=== PATIENT | female | born 1980 | race American Indian/Alaskan Native ===

== ENCOUNTER 2019-01-14 11:37 | Inpatient (IN) | payer SELFPAY ==
--- NOTE | 2019-01-14 11:47 | Emergency Department Report ---
Blank Doc - Documentation Documentation: This is a 38-year-old female that presents SOB and bilateral lower ext swelling. Denies history of cardiac. This initial assessment/diagnostic orders/clinical plan/treatment(s) is/are subject to change based on patient's health status, clinical progression and re- assessment by fellow clinical providers in the ED. Further treatment and workup at subsequent clinical providers discretion. Patient/guardians urged not to elope from the ED as their condition may be serious if not clinically assessed and managed. Initial orders include: 1- Patient sent to MAIN ED for further evaluation and treatment 2- EKG 3- labs 4- CXR
--- NOTE | 2019-01-14 14:43 | Emergency Department Report ---
ED Shortness of Breath HPI - General Chief Complaint: Dyspnea/Respdistress Stated Complaint: SOB/SWOLLEN FEET/ANKLES/CHEST PAIN Time Seen by Provider: 01/14/19 11:45 Source: patient Mode of arrival: Ambulatory Limitations: No Limitations - History of Present Illness Initial Comments: Patient is a 38-year-old female with no significant past medical history. Patient presented to the ER complaining of shortness of breath and generalized weakness and bilateral lower extremity swelling for the last 2 weeks. Patient denied any chest pain, fever or cough. Patient denied hematemesis, hemoptysis, melena and hematochezia or hematuria. However patient stated that she is been having trouble with her cycle. Continue usually for 10 days and is heavy and sometimes she has to change her pads every 2 hours. MD Complaint: shortness of breath -: week(s) - Related Data Allergies Allergy/AdvReac Type Severity Reaction Status Date / Time No Known Allergies Allergy Unverified 01/14/19 11:40 ED Review of Systems ROS: Stated complaint: SOB/SWOLLEN FEET/ANKLES/CHEST PAIN Other details as noted in HPI Comment: All other systems reviewed and negative Constitutional: denies: chills, fever Respiratory: orthopnea, shortness of breath, SOB with exertion, SOB at rest. denies: cough, wheezing Cardiovascular: denies: chest pain, palpitations Musculoskeletal: denies: back pain Neurological: weakness (generalized). denies: headache ED Past Medical Hx - Past Medical History Previous Medical History?: No - Surgical History Past Surgical History?: No - Social History Smoking Status: Current Every Day Smoker Substance Use Type: Alcohol ED Physical Exam - General Limitations: No Limitations General appearance: alert, in no apparent distress - Head Head exam: Present: atraumatic, normocephalic, normal inspection - Eye Eye exam: Present: other (pale sclera) - ENT ENT exam: Present: normal exam, normal orophraynx, mucous membranes moist - Neck Neck exam: Present: normal inspection, full ROM. Absent: tenderness, meningismus, lymphadenopathy, thyromegaly - Respiratory Respiratory exam: Present: normal lung sounds bilaterally - Cardiovascular Cardiovascular Exam: Present: tachycardia - GI/Abdominal GI/Abdominal exam: Present: soft, normal bowel sounds. Absent: distended, tenderness, guarding, rebound, rigid, organomegaly, mass, bruit, pulsatile mass, hernia - Extremities Exam Extremities exam: Present: normal inspection, full ROM, normal capillary refill - Back Exam Back exam: Present: normal inspection, full ROM. Absent: CVA tenderness (R), CVA tenderness (L), muscle spasm, paraspinal tenderness, vertebral tenderness, rash noted - Neurological Exam Neurological exam: Present: alert, oriented X3, CN II-XII intact, normal gait - Skin Skin exam: Present: warm, intact, normal color ED Course Vital Signs 01/14/19 01/14/19 01/14/19 11:47 15:17 16:06 Temperature 98.3 F Pulse Rate 103 H 82 87 Respiratory 18 18 18 Rate Blood Pressure 120/51 Blood Pressure 104/62 110/63 [Right] O2 Sat by Pulse 100 100 99 Oximetry ED Medical Decision Making - Lab Data Result diagrams: 01/14/19 13:45 01/14/19 13:45 - EKG Data -: EKG Interpreted by Id EKG shows normal: sinus rhythm Rate: tachycardia - EKG Data Interpretation: no acute changes - Radiology Data Radiology results: report reviewed - Medical Decision Making Patient is a 38-year-old female with no significant past medical history. Patient presented to the ER complaining of shortness of breath and generalized weakness and bilateral lower extremity swelling for the last 2 weeks. Patient denied any chest pain, fever or cough. Patient denied hematemesis, hemoptysis, melena and hematochezia or hematuria. However patient stated that she is been having trouble with her cycle. Continue usually for 10 days and is heavy and sometimes she has to change her pads every 2 hours. Patient found to have a hemoglobin of 2.6 most likely secondary to excessive bleeding from her menstrual cycle. 2 units of PRBC ordered. I discussed the patient is Dr. Vazquez, he agreed to admit the patient to medical service. I discussed the patient was Dr. Bansal from gynecology, she advised she will follow-up with the patient in the hospital. Critical Care Time: Yes Critical care time in (mins) excluding proc time.: 30 Critical care attestation.: If time is entered above; I have spent that time in minutes in the direct care of this critically ill patient, excluding procedure time. ED Disposition Clinical Impression: Acute anemia, Acute congestive heart failure Disposition: OP ADMIT IP TO THIS HOSP Is pt being admited?: Yes Condition: Stable Referrals: [facility], MD [Primary Care Provider] - 3-5 Days
[2019-01-14 14:51] LABS: INR 1.05 (0.87-1.13)
[2019-01-14 14:52] LABS: Partial Thromboplastin Time 29.7 Sec. (24.2-36.6)
[2019-01-14 14:55] LABS: Mean Corpuscular HGB Conc 25 % (30-34); Platelet Count 390 K/mm3 (140-440); Red Blood Count 2.04 M/mm3 (3.65-5.03)
[2019-01-14 14:59] LABS: Alanine Aminotransferase 30 units/L (7-56); Albumin 3.8 g/dL (3.9-5); BUN/Creatinine Ratio 10; Blood Urea Nitrogen 6 mg/dL (7-17); Calcium 8.5 mg/dL (8.4-10.2); Hemolysis Index 0
[2019-01-14 15:15] LABS: Hemoglobin 2.6 gm/dl (10.1-14.3)
[2019-01-14 15:16] LABS: Hematocrit 10.4 % (30.3-42.9); Mean Corpuscular Volume 51 fl (79-97); Red Cell Distribution Width 24.2 % (13.2-15.2)
[2019-01-14] MEDS ORDERED: NACL 0.9% 500 ML 500 ML IV ONE (15:45)
[2019-01-14 15:58] LABS: Eosinophils % (Manual) 0 % (0.0-4.3); Total Cells Counted 100
[2019-01-14 16:00] LABS: Anisocytosis 2+; Hypochromasia 3+
[2019-01-14 16:01] LABS: Tear Drop Cells Few
--- NOTE | 2019-01-14 16:21 | XRay Report ---
PROCEDURE: XR CHEST ROUTINE 2V HISTORY: Chest Pain upt FINDINGS: Frontal and lateral views the chest were acquired. There is cardiomegaly. There is no evide nce of congestive heart failure. There is no consolidative pulmonary infiltrate. IMPRESSION: Cardiomegaly This document is electronically signed by Kuldip Christine MD., Jan 14 2019 04:19:38 PM ET
[2019-01-14] MEDS ORDERED: NACL 0.9% 500 ML 500 ML ONE (17:14)
[2019-01-14] MEDS ORDERED: PERCOCET 5/325 PO PRN (21:22)
[2019-01-14] MEDS ORDERED: SODIUM CHLORIDE FLUSH SYRINGE 10 ML IV PRN ×2 (21:22→21:34)
[2019-01-14] MEDS ORDERED: ZOFRAN IV PRN ×2 (21:22→21:34)
[2019-01-14] MEDS ORDERED: TYLENOL PO PRN ×2 (21:22→21:34)
[2019-01-14] MEDS ORDERED: MORPHINE IV PRN (21:22)
--- NOTE | 2019-01-14 21:22 | History and Physical Report ---
History of Present Illness Date of examination: 01/14/19 Date of admission: 01/14/19 15:55 Chief complaint: Severe weakness and shortness of breath on exertion for 2 weeks History of present illness: 38-year-old female with no significant past medical history comes in for his severe weakness and bilateral lower extremity swelling for 2 weeks. In the emergency room patient was found to have a hemoglobin of 2.6. Patient has been having severe menstrual periods== heavy in nature. 10 days of menstrual periods and has to change up to 10 pads every day. Patient did not have any workup and does not know whether she has fibroids. No lower GI bleed or vomiting blood. No past medical history of any thalassemia or sickle cell anemias or hemolytic anemias. Past Medical History Previous Medical History?: No Surgical History Past Surgical History?: No Social History Smoking Status: Current Every Day Smoker Substance Use Type: Alcohol Family history hypertension Review of Systems ROS: Stated complaint: SOB/SWOLLEN FEET/ANKLES/CHEST PAIN Other details as noted in HPI Comment: All other systems reviewed and negative Constitutional: denies: chills, fever Respiratory: orthopnea, shortness of breath, SOB with exertion, SOB at rest. denies: cough, wheezing Cardiovascular: denies: chest pain, palpitations Musculoskeletal: denies: back pain Neurological: weakness (generalized). denies: headache Medications and Allergies Allergies Allergy/AdvReac Type Severity Reaction Status Date / Time No Known Allergies Allergy Unverified 01/14/19 11:40 Home Medications Medication Instructions Recorded Confirmed Last Taken Type No Known Home Medications [No 01/14/19 01/14/19 Unknown History Reported Home Medications] Exam - Physical Exam Narrative exam: Lying in bed comfortably - Constitutional Vitals: Temp Pulse Resp BP Pulse Ox 98.8 F 91 H 16 121/61 97 01/14/19 20:29 01/14/19 20:29 01/14/19 20:29 01/14/19 20:29 01/14/19 20:29 General appearance: Present: no acute distress, well-nourished - EENT Eyes: Present: PERRL ENT: hearing intact, clear oral mucosa, other (pale mucous membranes) - Neck Neck: Present: supple, normal ROM - Respiratory Respiratory effort: normal Respiratory: bilateral: CTA - Cardiovascular Heart rate: 96 Rhythm: regular Heart Sounds: Present: S1 & S2. Absent: rub, click - Extremities Extremities: no ischemia, pulses intact, pulses symmetrical, No edema Peripheral Pulses: within normal limits - Abdominal General gastrointestinal: Present: soft, non-tender, non-distended, normal bowel sounds Female genitourinary: Present: normal - Rectal Rectal Exam: deferred - Integumentary Integumentary: Present: clear, warm, dry - Musculoskeletal Musculoskeletal: gait normal, strength equal bilaterally - Psychiatric Psychiatric: appropriate mood/affect, intact judgment & insight - Neurologic Neurologic: CNII-XII intact, moves all extremities Results - Labs CBC & Chem 7: 01/14/19 13:45 01/14/19 13:45 Labs: Laboratory Last Values WBC 6.3 K/mm3 (4.5-11.0) 01/14/19 13:45 RBC 2.04 M/mm3 (3.65-5.03) L 01/14/19 13:45 Hgb 2.6 gm/dl (10.1-14.3) L* 01/14/19 13:45 Hct 10.4 % (30.3-42.9) L* 01/14/19 13:45 MCV 51 fl (79-97) L 01/14/19 13:45 MCH 13 pg (28-32) L 01/14/19 13:45 MCHC 25 % (30-34) L 01/14/19 13:45 RDW 24.2 % (13.2-15.2) H 01/14/19 13:45 Plt Count 390 K/mm3 (140-440) 01/14/19 13:45 Add Manual Diff Complete 01/14/19 13:45 Total Counted 100 01/14/19 13:45 Seg Neuts % (Manual) 85.0 % (40.0-70.0) H 01/14/19 13:45 0 % 01/14/19 13:45 10.0 % (13.4-35.0) L 01/14/19 13:45 Reactive Lymphs % (Man) 0 % 01/14/19 13:45 2.0 % (0.0-7.3) 01/14/19 13:45 0 % (0.0-4.3) 01/14/19 13:45 3.0 % (0.0-1.8) H 01/14/19 13:45 0 % 01/14/19 13:45 0 % 01/14/19 13:45 0 % 01/14/19 13:45 0 % 01/14/19 13:45 Nucleated RBC % Not Reportable 01/14/19 13:45 Seg Neutrophils # Man 5.4 K/mm3 (1.8-7.7) 01/14/19 13:45 Band Neutrophils # 0.0 K/mm3 01/14/19 13:45 0.6 K/mm3 (1.2-5.4) L 01/14/19 13:45 Abs React Lymphs (Man) 0.0 K/mm3 01/14/19 13:45 0.1 K/mm3 (0.0-0.8) 01/14/19 13:45 0.0 K/mm3 (0.0-0.4) 01/14/19 13:45 0.2 K/mm3 (0.0-0.1) H 01/14/19 13:45 0.0 K/mm3 01/14/19 13:45 0.0 K/mm3 01/14/19 13:45 0.0 K/mm3 01/14/19 13:45 Blast Cells # 0.0 K/mm3 01/14/19 13:45 WBC Morphology Not Reportable 01/14/19 13:45 Hypersegmented Neuts Not Reportable 01/14/19 13:45 Hyposegmented Neuts Not Reportable 01/14/19 13:45 Hypogranular Neuts Not Reportable 01/14/19 13:45 Not Reportable 01/14/19 13:45 Not Reportable 01/14/19 13:45 Not Reportable 01/14/19 13:45 Not Reportable 01/14/19 13:45 Not Reportable 01/14/19 13:45 Not Reportable 01/14/19 13:45 Appears normal 01/14/19 13:45 Not Reportable 01/14/19 13:45 Plt Clumps, EDTA Not Reportable 01/14/19 13:45 Not Reportable 01/14/19 13:45 Not Reportable 01/14/19 13:45 Not Reportable 01/14/19 13:45 Plt Morphology Comment Not Reportable 01/14/19 13:45 RBC Morphology Not Reportable 01/14/19 13:45 Dimorphic RBCs Not Reportable 01/14/19 13:45 Not Reportable 01/14/19 13:45 3+ 01/14/19 13:45 Not Reportable 01/14/19 13:45 2+ 01/14/19 13:45 3+ 01/14/19 13:45 Not Reportable 01/14/19 13:45 Not Reportable 01/14/19 13:45 Not Reportable 01/14/19 13:45 Not Reportable 01/14/19 13:45 Not Reportable 01/14/19 13:45 Few 01/14/19 13:45 Not Reportable 01/14/19 13:45 Not Reportable 01/14/19 13:45 Not Reportable 01/14/19 13:45 Not Reportable 01/14/19 13:45 Not Reportable 01/14/19 13:45 Not Reportable 01/14/19 13:45 Not Reportable 01/14/19 13:45 Not Reportable 01/14/19 13:45 Acanthocytes (Spur) Not Reportable 01/14/19 13:45 Rouleaux Not Reportable 01/14/19 13:45 Not Reportable 01/14/19 13:45 Not Reportable 01/14/19 13:45 Not Reportable 01/14/19 13:45 Not Reportable 01/14/19 13:45 Hem Pathologist Commnt No 01/14/19 13:45 PT 14.4 Sec. (12.2-14.9) 01/14/19 13:45 INR 1.05 (0.87-1.13) 01/14/19 13:45 APTT 29.7 Sec. (24.2-36.6) 01/14/19 13:45 Sodium 137 mmol/L (137-145) 01/14/19 13:45 Potassium 3.9 mmol/L (3.6-5.0) 01/14/19 13:45 Chloride 103.7 mmol/L (98-107) 01/14/19 13:45 Carbon Dioxide 22 mmol/L (22-30) 01/14/19 13:45 15 mmol/L 01/14/19 13:45 BUN 6 mg/dL (7-17) L 01/14/19 13:45 0.6 mg/dL (0.7-1.2) L 01/14/19 13:45 Estimated GFR > 60 ml/min 01/14/19 13:45 10 % 01/14/19 13:45 Glucose 96 mg/dL (65-100) 01/14/19 13:45 Calcium 8.5 mg/dL (8.4-10.2) 01/14/19 13:45 0.30 mg/dL (0.1-1.2) 01/14/19 13:45 AST 28 units/L (5-40) 01/14/19 13:45 ALT 30 units/L (7-56) 01/14/19 13:45 160 units/L (35-129) H 01/14/19 13:45 < 0.010 ng/mL (0.00-0.029) 01/14/19 13:45 NT-Pro-B Natriuret Pep 1165 pg/mL (0-450) H 01/14/19 13:45 6.7 g/dL (6.3-8.2) 01/14/19 13:45 3.8 g/dL (3.9-5) L 01/14/19 13:45 1.3 % 01/14/19 13:45 HCG, Qual Negative (Negative) 01/14/19 13:45 Blood Type O POSITIVE 01/14/19 15:45 Antibody Screen Negative 01/14/19 15:45 Crossmatch See Detail 01/14/19 15:45 Short CBC 01/14/19 Range/Units 13:45 WBC 6.3 (4.5-11.0) K/mm3 Hgb 2.6 L* (10.1-14.3) gm/dl Hct 10.4 L* (30.3-42.9) % Plt Count 390 (140-440) K/mm3 BMP 01/14/19 13:45 Sodium 137 Potassium 3.9 Chloride 103.7 Carbon Dioxide 22 BUN 6 L Creatinine 0.6 L Glucose 96 Calcium 8.5 Cardiac Enzymes 01/14/19 Range/Units 13:45 Troponin T < 0.010 (0.00-0.029) ng/mL Liver Function 01/14/19 Range/Units 13:45 Total Bilirubin 0.30 (0.1-1.2) mg/dL AST 28 (5-40) units/L ALT 30 (7-56) units/L Alkaline Phosphatase 160 H (35-129) units/L Albumin 3.8 L (3.9-5) g/dL - Imaging and Cardiology EKG: report reviewed (pending) Imaging and Cardiology: Chest x-ray IMPRESSION: Cardiomegaly Assessment and Plan Advance Directives: Yes (full code) VTE prophylaxis?: Chemical Plan of care discussed with patient/family: Yes - Patient Problems (1) Acute anemia Current Visit: Yes Status: Acute Plan to address problem: Secondary to menorrhagia Transfuse 2-4 units of packed red blood cells Menorrhagia workup to rule out fibroids [employer] consult requested Pelvic ultrasound requested (2) Acute congestive heart failure Current Visit: Yes Status: Acute Qualifiers: Heart failure type: combined systolic and diastolic Qualified Code(s): I50.41 - Acute combined systolic (congestive) and diastolic (congestive) heart failure Plan to address problem: Secondary to severe anemia Will get echocardiogram to assess LV function and ejection fraction No diuretics (3) Menorrhagia Current Visit: Yes Status: Acute Qualifiers: Menorrahagia type: with onset of menstrual periods Qualified Code(s): N92.2 - Excessive menstruation at puberty Plan to address problem: Excessive bleeding per uterus Rule out endometriosis and fibroids Pelvic ultrasound ordered [employer] consult ordered (4) Nicotine dependence Current Visit: Yes Status: Chronic Qualifiers: Nicotine product type: cigarettes Plan to address problem: Consult about cessation of smoking NicoDerm patch ordered (5) DVT prophylaxis Current Visit: Yes Status: Acute Plan to address problem: SCDs and GI prophylaxis
[2019-01-14] MEDS ORDERED: NACL 0.9% 500 ML 500 ML IV SCH (21:35)
[2019-01-14] MEDS ORDERED: NACL 0.9% 250ML 250 ML ONE (21:43)
[2019-01-14] MEDS: PEPCID IV SCH (21:46)
[2019-01-14] MEDS: SODIUM CHLORIDE FLUSH SYRINGE 10 ML IV SCH (21:47)
[2019-01-14] MEDS ORDERED: SODIUM CHLORIDE FLUSH SYRINGE 10 ML IV SCH (22:00)
[2019-01-14] MEDS ORDERED: D5NS 1,000 ML IV SCH (22:00)
[2019-01-15] MEDS ORDERED: LASIX IV ONE (09:00)
--- NOTE | 2019-01-15 09:21 | XRay Report ---
AP CHEST: HISTORY: Shortness of breath 2 view chest performed yesterday was reviewed. Heart size is normal in my opinion. Pulmonary vascularity is at the upper limits of normal. The lungs are clear. No evidence for pneumonia, pleural effusion or pneumothorax. IMPRESSION: Unremarkable AP chest.
[2019-01-15] MEDS ORDERED: PROVENTIL IH PRN (11:07)
--- NOTE | 2019-01-15 13:48 | Consultation ---
History of Present Illness Consult date: 01/15/19 Reason for consult: menorrhagia, other (anemia) History of present illness: 38-year-old who presents to the emergency department with a complaint of shortness of breath and fatigue. The patient reports a history of having significant dysfunctional uterine bleeding with her menses lasting generally 10- 12 days each month with the passage of clots and flooding. The patient states she's had abnormal bleeding for several months without treatment. She has no known history of uterine fibroids in the past. Past History Past Medical History: other (anemia) Past Surgical History: section Social history: single - Obstetrical History : 2 Para: 2 Hx # Term Pregnancies: 0 Number of Pregnancies: 2 ( demise) Spontaneous Abortions: 0 Induced : 0 Number of Living Children: 1 Medications and Allergies Allergies Allergy/AdvReac Type Severity Reaction Status Date / Time No Known Allergies Allergy Unverified 01/14/19 11:40 Home Medications Medication Instructions Recorded Confirmed Last Taken Type No Known Home Medications [No 01/14/19 01/14/19 Unknown History Reported Home Medications] Active Meds: Active Medications Acetaminophen (Tylenol) 650 mg PO Q4H PRN PRN Reason: Pain MILD(1-3)/Fever >100.5/TRAN Last Admin: 01/15/19 08:10 Dose: 650 mg Documented by: Albuterol (Proventil) 2.5 mg IH Q4HRT PRN PRN Reason: Shortness Of Breath Albuterol/Ipratropium (Duoneb *Not For Prn Use*) 1 ampul IH Q8HRT [facility] Famotidine (Pepcid) 20 mg IV BID [facility] Last Admin: 01/14/19 21:46 Dose: 20 mg Documented by: Dextrose/Sodium Chloride (D5ns) 1,000 mls @ 42 mls/hr IV DIRECT [facility] Last Admin: 01/14/19 22:03 Dose: 42 mls/hr Documented by: Sodium Chloride (Nacl 0.9% 500 Ml) 500 mls @ 0 mls/hr IV ONCE KEYLA Stop: 01/15/19 21:34 Last Admin: 01/15/19 02:20 Dose: 50 mls/hr Documented by: Morphine Sulfate (Morphine) 2 mg IV Q4H PRN PRN Reason: Pain, Moderate (4-6) Ondansetron HCl (Zofran) 4 mg IV Q8H PRN PRN Reason: Nausea And Vomiting Oxycodone/Acetaminophen (Percocet 5/325) 1 tab PO Q6H PRN PRN Reason: Pain, Moderate (4-6) Sodium Chloride (Sodium Chloride Flush Syringe 10 Ml) 10 ml IV BID [facility] Last Admin: 01/14/19 21:47 Dose: 10 ml Documented by: Sodium Chloride (Sodium Chloride Flush Syringe 10 Ml) 10 ml IV PRN PRN PRN Reason: LINE FLUSH Review of Systems All systems: negative Constitutional: fatigue, weakness, malaise Genitourinary: vaginal bleeding - Vital Signs Vital signs: Vital Signs Temp Pulse Resp BP Pulse Ox 98.3 F 103 H 18 120/51 100 01/14/19 11:47 01/14/19 11:47 01/14/19 11:47 01/14/19 11:47 01/14/19 11:47 Temp Pulse Resp BP Pulse Ox 98.7 F 74 18 111/69 97 01/15/19 12:54 01/15/19 06:20 01/15/19 12:54 01/15/19 12:54 01/15/19 06:20 - Physical Exam Breasts: Positive: deferred Cardiovascular: Regular rate Lungs: Positive: Clear to auscultation Abdomen: Positive: normal appearance Results Result Diagrams: 01/14/19 13:45 01/14/19 13:45 Abnormal lab results 01/14/19 01/14/19 01/14/19 Range/Units 13:45 13:45 15:45 RBC 2.04 L (3.65-5.03) M/mm3 Hgb 2.6 L* (10.1-14.3) gm/dl Hct 10.4 L* (30.3-42.9) % MCV 51 L (79-97) fl MCH 13 L (28-32) pg MCHC 25 L (30-34) % RDW 24.2 H (13.2-15.2) % Seg Neuts % (Manual) 85.0 H (40.0-70.0) % Lymphocytes % (Manual) 10.0 L (13.4-35.0) % Basophils % (Manual) 3.0 H (0.0-1.8) % Lymphocytes # (Manual) 0.6 L (1.2-5.4) K/mm3 Basophils # (Manual) 0.2 H (0.0-0.1) K/mm3 BUN 6 L (7-17) mg/dL Creatinine 0.6 L (0.7-1.2) mg/dL Alkaline Phosphatase 160 H (35-129) units/L NT-Pro-B Natriuret Pep 1165 H (0-450) pg/mL Albumin 3.8 L (3.9-5) g/dL Crossmatch See Detail All other labs normal. Assessment and Plan - Patient Problems (1) Acute anemia Current Visit: Yes Status: Acute Plan to address problem: Will order a pelvic ultrasound Patient has currently completed her menses for this month Will need to perform an endometrial biopsy as an outpatient will further discuss treatment options after ultrasound is completed (2) Menorrhagia Current Visit: Yes Status: Acute Qualifiers: Menorrahagia type: with onset of menstrual periods Qualified Code(s): N92.2 - Excessive menstruation at puberty
[2019-01-15] MEDS: DUONEB *Not for PRN Use IH SCH (14:07)
--- NOTE | 2019-01-15 14:51 | Progress Note ---
Assessment and Plan Assessment and plan: 38-year-old female with no significant past medical history comes in for his severe weakness and bilateral lower extremity swelling for 2 weeks. In the emergency room patient was found to have a hemoglobin of 2.6. Patient has been having severe menstrual periods== heavy in nature. 10 days of menstrual periods and has to change up to 10 pads every day. Patient did not have any workup and does not know whether she has fibroids. No lower GI bleed or vomiting blood. No past medical history of any thalassemia or sickle cell anemias or hemolytic anemias. 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 (3) Menorrhagia Current Visit: Yes Status: Acute Qualifiers: Menorrahagia type: with onset of menstrual periods Qualified Code(s): N92.2 - Excessive menstruation at puberty Plan to address problem: Excessive bleeding per uterus Rule out endometriosis and fibroids Pelvic ultrasound ordered ACID BLOWER consult ordered and case discussed with them. (4) Nicotine dependence Current Visit: Yes Status: Chronic Qualifiers: Nicotine product type: cigarettes Plan to address problem: Consult about cessation of smoking. 15 minutes of counseling provided to the patient. NicoDerm patch ordered (5) DVT prophylaxis Current Visit: Yes Status: Acute Plan to address problem: SCDs and GI prophylaxis Anticipated discharge in a.m. discussed with ACID BLOWER patient to follow-up in the office. Await pelvic ultrasound was ordered. History Interval history: Admitted with severe anemia. Patient is examined this morning in no acute distress resting comfortably. Although this morning the patient reported shortness of breath improved with introduction of Lasix. Hospitalist Physical - Physical exam Narrative exam: VITAL SIGNS: Reviewed. GENERAL: The patient appeared well nourished and normally developed, Vital signs as documented. HEAD: No signs of head trauma. EYES: Pupils are equal. Extraocular motions intact. EARS: Hearing grossly intact. MOUTH: Oropharynx is normal. NECK: No adenopathy, no JVD. Mildly tender on the right side. CHEST: Chest with clear breath sounds bilaterally. No wheezes, rales, or rhonchi. CARDIAC: Regular rate and rhythm. S1 and S2, without murmurs, gallops, or rubs. VASCULAR: No Edema. Peripheral pulses normal and equal in all extremities. ABDOMEN: Soft, non tender and non distended. No rebound or guarding, and no masses palpated. Bowel Sounds normal. MUSCULOSKELETAL: Good range of motion of all major joints. Extremities without clubbing, cyanosis or edema. NEUROLOGIC EXAM: Alert and oriented x 3 No focal sensory or strength def icits. Speech normal. Follows commands. PSYCHIATRIC: Mood normal. SKIN: No rash or lesions. - Constitutional Vitals: Temp Pulse Resp BP Pulse Ox 98.7 F 69 16 111/69 97 01/15/19 12:54 01/15/19 14:11 01/15/19 14:11 01/15/19 12:54 01/15/19 06:20 General appearance: Present: no acute distress, well-nourished Results - Labs CBC & Chem 7: 01/14/19 13:45 01/14/19 13:45 Labs: Laboratory Last Values WBC 6.3 K/mm3 (4.5-11.0) 01/14/19 13:45 RBC 2.04 M/mm3 (3.65-5.03) L 01/14/19 13:45 Hgb 2.6 gm/dl (10.1-14.3) L* 01/14/19 13:45 Hct 10.4 % (30.3-42.9) L* 01/14/19 13:45 MCV 51 fl (79-97) L 01/14/19 13:45 MCH 13 pg (28-32) L 01/14/19 13:45 MCHC 25 % (30-34) L 01/14/19 13:45 RDW 24.2 % (13.2-15.2) H 01/14/19 13:45 Plt Count 390 K/mm3 (140-440) 01/14/19 13:45 Add Manual Diff Complete 01/14/19 13:45 Total Counted 100 05/13/19 13:45 Seg Neuts % (Manual) 85.0 % (40.0-70.0) H 01/14/19 13:45 0 % 01/14/19 13:45 10.0 % (13.4-35.0) L 01/14/19 13:45 Reactive Lymphs % (Man) 0 % 01/14/19 13:45 2.0 % (0.0-7.3) 01/14/19 13:45 0 % (0.0-4.3) 01/14/19 13:45 3.0 % (0.0-1.8) H 01/14/19 13:45 0 % 01/14/19 13:45 0 % 01/14/19 13:45 0 % 01/14/19 13:45 0 % 01/14/19 13:45 Nucleated RBC % Not Reportable 01/14/19 13:45 Seg Neutrophils # Man 5.4 K/mm3 (1.8-7.7) 01/14/19 13:45 Band Neutrophils # 0.0 K/mm3 01/14/19 13:45 0.6 K/mm3 (1.2-5.4) L 01/14/19 13:45 Abs React Lymphs (Man) 0.0 K/mm3 01/14/19 13:45 0.1 K/mm3 (0.0-0.8) 01/14/19 13:45 0.0 K/mm3 (0.0-0.4) 01/14/19 13:45 0.2 K/mm3 (0.0-0.1) H 01/14/19 13:45 0.0 K/mm3 01/14/19 13:45 0.0 K/mm3 01/14/19 13:45 0.0 K/mm3 01/14/19 13:45 Blast Cells # 0.0 K/mm3 01/14/19 13:45 WBC Morphology Not Reportable 01/14/19 13:45 Hypersegmented Neuts Not Reportable 01/14/19 13:45 Hyposegmented Neuts Not Reportable 01/14/19 13:45 Hypogranular Neuts Not Reportable 01/14/19 13:45 Not Reportable 01/14/19 13:45 Not Reportable 01/14/19 13:45 Not Reportable 01/14/19 13:45 Not Reportable 01/14/19 13:45 Not Reportable 01/14/19 13:45 Not Reportable 01/14/19 13:45 Appears normal 01/14/19 13:45 Not Reportable 01/14/19 13:45 Plt Clumps, EDTA Not Reportable 01/14/19 13:45 Not Reportable 01/14/19 13:45 Not Reportable 01/14/19 13:45 Not Reportable 01/14/19 13:45 Plt Morphology Comment Not Reportable 01/14/19 13:45 RBC Morphology Not Reportable 01/14/19 13:45 Dimorphic RBCs Not Reportable 01/14/19 13:45 Not Reportable 01/14/19 13:45 3+ 01/14/19 13:45 Not Reportable 01/14/19 13:45 2+ 01/14/19 13:45 3+ 01/14/19 13:45 Not Reportable 01/14/19 13:45 Not Reportable 01/14/19 13:45 Not Reportable 01/14/19 13:45 Not Reportable 01/14/19 13:45 Not Reportable 01/14/19 13:45 Few 01/14/19 13:45 Not Reportable 01/14/19 13:45 Not Reportable 01/14/19 13:45 Not Reportable 01/14/19 13:45 Not Reportable 01/14/19 13:45 Not Reportable 01/14/19 13:45 Not Reportable 01/14/19 13:45 Not Reportable 01/14/19 13:45 Not Reportable 01/14/19 13:45 Acanthocytes (Spur) Not Reportable 01/14/19 13:45 Rouleaux Not Reportable 01/14/19 13:45 Not Reportable 01/14/19 13:45 Not Reportable 01/14/19 13:45 Not Reportable 01/14/19 13:45 Not Reportable 01/14/19 13:45 Hem Pathologist Commnt No 01/14/19 13:45 PT 14.4 Sec. (12.2-14.9) 01/14/19 13:45 INR 1.05 (0.87-1.13) 01/14/19 13:45 APTT 29.7 Sec. (24.2-36.6) 01/14/19 13:45 Sodium 137 mmol/L (137-145) 01/14/19 13:45 Potassium 3.9 mmol/L (3.6-5.0) 01/14/19 13:45 Chloride 103.7 mmol/L (98-107) 01/14/19 13:45 Carbon Dioxide 22 mmol/L (22-30) 01/14/19 13:45 15 mmol/L 01/14/19 13:45 BUN 6 mg/dL (7-17) L 01/14/19 13:45 0.6 mg/dL (0.7-1.2) L 01/14/19 13:45 Estimated GFR > 60 ml/min 01/14/19 13:45 10 % 01/14/19 13:45 Glucose 96 mg/dL (65-100) 01/14/19 13:45 Calcium 8.5 mg/dL (8.4-10.2) 01/14/19 13:45 0.30 mg/dL (0.1-1.2) 01/14/19 13:45 AST 28 units/L (5-40) 01/14/19 13:45 ALT 30 units/L (7-56) 01/14/19 13:45 160 units/L (35-129) H 01/14/19 13:45 < 0.010 ng/mL (0.00-0.029) 01/14/19 13:45 NT-Pro-B Natriuret Pep 1165 pg/mL (0-450) H 01/14/19 13:45 6.7 g/dL (6.3-8.2) 01/14/19 13:45 3.8 g/dL (3.9-5) L 01/14/19 13:45 1.3 % 01/14/19 13:45 HCG, Qual Negative (Negative) 01/14/19 13:45 Blood Type O POSITIVE 01/14/19 15:45 Antibody Screen Negative 01/14/19 15:45 Crossmatch See Detail 01/14/19 15:45 Active Medications - Current Medications Current Medications: Generic Name Dose Route Start Last Admin Trade Name Fredyq PRN Reason Stop Dose Admin Acetaminophen 650 mg 01/14/19 21:34 01/15/19 08:10 Tylenol PO 650 mg Q4H PRN Administration Pain MILD(1-3)/Fever >100.5/TRAN Albuterol 2.5 mg 01/15/19 11:07 Proventil IH Q4HRT PRN Shortness Of Breath Albuterol/Ipratropium 1 ampul 01/15/19 16:00 01/15/19 14:07 Duoneb *Not For Prn Use* IH 1 ampul Q8HRT KEYLA Administration Famotidine 20 mg 01/14/19 22:00 01/14/19 21:46 Pepcid IV 20 mg BID KEYLA Administration Dextrose/Sodium Chloride 1,000 mls @ 42 mls/hr 01/14/19 22:00 01/14/19 22:03 D5ns IV 42 mls/hr DIRECT KEYLA Administration Sodium Chloride 500 mls @ 0 mls/hr 01/14/19 21:35 01/15/19 02:20 Nacl 0.9% 500 Ml IV 01/15/19 21:34 50 mls/hr ONCE KEYLA Administration As Directed Morphine Sulfate 2 mg 01/14/19 21:22 Morphine IV Q4H PRN Pain, Moderate (4-6) Ondansetron HCl 4 mg 01/14/19 21:34 Zofran IV Q8H PRN Nausea And Vomiting Oxycodone/Acetaminophen 1 tab 01/14/19 21:22 Percocet 5/325 PO Q6H PRN Pain, Moderate (4-6) Sodium Chloride 10 ml 01/14/19 22:00 01/14/19 21:47 Sodium Chloride Flush Syringe 10 Ml IV 10 ml BID KEYLA Administration Sodium Chloride 10 ml 01/14/19 21:34 Sodium Chloride Flush Syringe 10 Ml IV PRN PRN LINE FLUSH
[2019-01-15] MEDS: PEPCID IV SCH ×2 (15:49→21:13)
[2019-01-15] MEDS: SODIUM CHLORIDE FLUSH SYRINGE 10 ML IV SCH ×2 (15:50→21:13)
[2019-01-15 17:03] LABS: Hematocrit 23.8 % (30.3-42.9); Hemoglobin 7.9 gm/dl (10.1-14.3); Mean Corpuscular HGB Conc 33 % (30-34); Platelet Count 301 K/mm3 (140-440); Red Blood Count 3.44 M/mm3 (3.65-5.03)
[2019-01-15 17:06] LABS: Mean Corpuscular Volume 69 fl (79-97); Red Cell Distribution Width 37.8 % (13.2-15.2)
[2019-01-15 17:46] LABS: Basophils % (Manual) 0 % (0.0-1.8); Total Cells Counted 100
[2019-01-15 17:47] LABS: Anisocytosis 2+; Large Platelets Few; Platelet Estimate Consistent w Auto
[2019-01-15 17:48] LABS: Hypochromasia 1+; Tear Drop Cells Few
[2019-01-15 17:55] LABS: Alanine Aminotransferase 27 units/L (7-56); Albumin 3.8 g/dL (3.9-5); BUN/Creatinine Ratio 8; Blood Urea Nitrogen 5 mg/dL (7-17); Calcium 8.9 mg/dL (8.4-10.2); Hemolysis Index 5
[2019-01-15] MEDS: BROVANA NEBU IH SCH (20:18)
[2019-01-15] MEDS: PULMICORT IH SCH (20:18)
[2019-01-16] MEDS: DUONEB *Not for PRN Use IH SCH (07:51)
[2019-01-16] MEDS: PULMICORT IH SCH (07:52)
[2019-01-16] MEDS: BROVANA NEBU IH SCH (08:08)
[2019-01-16] MEDS: SODIUM CHLORIDE FLUSH SYRINGE 10 ML IV SCH (09:32)
[2019-01-16] MEDS: PEPCID IV SCH (09:32)
--- NOTE | 2019-01-16 10:42 | Progress Note ---
Assessment and Plan - Patient Problems (1) Acute anemia Current Visit: Yes Status: Acute (2) Menorrhagia Current Visit: Yes Status: Acute Qualifiers: Menorrahagia type: with onset of menstrual periods Qualified Code(s): N92.2 - Excessive menstruation at puberty Plan to address problem: will administer depoprovera in an attempt to achieve amenorrhea patient given contact information to followup as outpatient will perform endometrial biopsy as an outpatient (3) Leiomyoma Current Visit: Yes Status: Acute Subjective - Subjective Date of service: 01/16/19 Interval history: Patient states feeling better today after receiving transfusion of 4 units of prbcs. Hemoglobin 7.9. Ultrasound report pending however multiple leiomyomas detected on the images along with a simple ovarian cyst. Patient states she will not be able to proceed with treatment until her employer's health insurance is active in April. Patient reports: appetite normal, voiding normally, pain well controlled Objective - Vital Signs Latest vital signs: Vital Signs Temp Pulse Pulse Pulse Resp Resp Resp 01/16/19 08:22 98.3 F 18 01/16/19 07:52 74 18 01/16/19 04:06 98.7 F 72 18 01/16/19 01:00 74 01/15/19 23:19 98.3 F 72 16 01/15/19 20:30 80 20 01/15/19 20:21 83 20 01/15/19 20:00 98.5 F 83 16 01/15/19 16:56 98.4 F 18 01/15/19 14:51 01/15/19 14:11 69 73 16 18 01/15/19 12:54 98.7 F 18 BP BP Pulse Ox 01/16/19 08:22 113/55 01/16/19 07:52 01/16/19 04:06 110/69 100 01/16/19 01:00 01/15/19 23:19 119/57 100 01/15/19 20:30 01/15/19 20:21 01/15/19 20:00 109/59 100 01/15/19 16:56 119/73 01/15/19 14:51 100 01/15/19 14:11 01/15/19 12:54 111/69 Intake and Output 01/15/19 01/16/19 01/16/19 22:59 06:59 14:59 Intake Total 250 320 Balance 250 320 Intake: Oral 240 320 Other 10 Other: Intake, Other Source Saline Solution Total, Intake Amount 250 320 Voiding Method Toilet Weight 66.1 kg - Labs Labs: Abnormal lab results 01/15/19 01/15/19 Range/Units 16:33 16:33 RBC 3.44 L (3.65-5.03) M/mm3 Hgb 7.9 L D (10.1-14.3) gm/dl Hct 23.8 L D (30.3-42.9) % MCV 69 L (79-97) fl MCH 23 L (28-32) pg RDW 37.8 H (13.2-15.2) % Seg Neuts % (Manual) 88.0 H (40.0-70.0) % Lymphocytes % (Manual) 7.0 L (13.4-35.0) % Lymphocytes # (Manual) 0.5 L (1.2-5.4) K/mm3 BUN 5 L (7-17) mg/dL Creatinine 0.6 L (0.7-1.2) mg/dL Alkaline Phosphatase 148 H (35-129) units/L Albumin 3.8 L (3.9-5) g/dL
[2019-01-16] MEDS ORDERED: PROVENTIL IH PRN (11:07)
[2019-01-16] MEDS ORDERED: DEPO-PROVERA (CONTRACEPTION) IM ONE (11:30)
[2019-01-16 12:54] VITALS: BP 105/52
--- NOTE | 2019-01-16 15:00 | Ultrasound Report ---
PROCEDURE: US PELVIC COMPLETE TECHNIQUE: HISTORY: menorraghia COMPARISONS: FINDINGS: Real-time ultrasound of the pelvis was performed by transabdominal and endovaginal techniqu e. The uterus measures 10.5 x 9.0 x 10.1 cm. There are multiple uterine leiomyomas. Superior fundal leiomyoma measures 3.5 x 2.9 x 4.3 cm. Posteri or to this is a leiomyoma measuring 2.8 x 2.9 x 2.6 cm. There is a submucosal leiomyoma measuring 1.6 x 3.5 x 2.3 cm. Right-sided uterine leiomyoma measures 4.0 x 4.3 x 4.0 cm. Left-sided uterine leiomyoma measures 3.1 x 3.1 x 2.6 cm and posterior to this is a leiomyoma measuring 3.5 x 2.9 x 3.5 cm. The endometrial stripe is mildly thickened at 1.3 cm The right ovary measures 6.5 x 2.5 x 6.0 cm contains 2 cysts, 3.4 cm and 3.7 cm. The left ovary measu res 4.1 x 2.4 x 3.9 cm contains a cyst measuring 2.1 cm. There is no evidence of ovarian torsion. IMPRESSION: Multiple uterine leiomyomas including some mucosal leiomyoma Ovarian cysts, consistent with physiologic cysts. There is no evidence of ovarian torsion. This document is electronically signed by Kuldip Christine MD., Jan 16 2019 02:58:46 PM ET
--- NOTE | 2019-01-16 16:25 | Discharge Summary ---
Providers - Providers Date of Admission: 01/14/19 15:55 Date of discharge: 01/16/19 Attending physician: EDWARD WAGNER 01/14/19 16:14 Consult to Physician [CONS] Stat Comment: Consulting Provider: ALEXANDREA HERNANDEZ Physician Instructions: Reason For Exam: Severe anemia, excessive menstrual bleeding Primary care physician: [facility], Hospitalization Condition: Stable Pertinent studies: Pelvic ultrasound IMPRESSION: Multiple uterine leiomyomas including some mucosal leiomyoma Ovarian cysts, consistent with physiologic cysts. There is no evidence of ovarian torsion. ECHO Nl EF Hospital course: (1) Acute anemia Current Visit: Yes Status: Acute Plan to address problem: Secondary to menorrhagia Transfuse 2-4 units of packed red blood cells Menorrhagia workup to rule out fibroids BUSINESS TRANSFORMATION MANAGER consult requested Pelvic ultrasound--Uterine Laiomyoma Needs F/u with Vessel [facility] Dr Hernandez (2) Acute congestive heart failure Current Visit: Yes Status: Acute Qualifiers: Heart failure type: combined systolic and diastolic Qualified Code(s): I50.41 - Acute combined systolic (congestive) and diastolic (congestive) heart failure Plan to address problem: Secondary to severe anemia echocardiogram to assess LV function and ejection fraction--Nl EF No diuretics (3) Menorrhagia Current Visit: Yes Status: Acute Qualifiers: Menorrahagia type: with onset of menstrual periods Qualified Code(s): N92.2 - Excessive menstruation at puberty Plan to address problem: Excessive bleeding per uterus Patient has fibroids Needs hysterectomy as out PATIENT Patient counselled (4) Nicotine dependence Current Visit: Yes Status: Chronic Qualifiers: Nicotine product type: cigarettes Plan to address problem: Consult about cessation of smoking NicoDerm patch ordered Patient counseled about cessation of smoking Disposition: DC-01 TO HOME OR SELFCARE Core Measure Documentation - Palliative Care Palliative Care/ Comfort Measures: Not Applicable - Core Measures Any of the following diagnoses?: none Exam - Constitutional Vitals: Temp Pulse Resp BP Pulse Ox 98.4 F 74 18 105/52 100 01/16/19 12:11 01/16/19 12:11 01/16/19 12:11 01/16/19 12:11 01/16/19 12:11 General appearance: Present: no acute distress, well-nourished - EENT Eyes: Present: PERRL ENT: hearing intact, clear oral mucosa - Neck Neck: Present: supple, normal ROM - Respiratory Respiratory effort: normal Respiratory: bilateral: CTA - Cardiovascular Heart Sounds: Present: S1 & S2. Absent: rub, click - Extremities Extremities: pulses symmetrical, No edema Peripheral Pulses: within normal limits - Abdominal General gastrointestinal: Present: soft, non-tender, non-distended, normal bowel sounds Female genitourinary: Present: normal - Integumentary Integumentary: Present: clear, warm, dry - Musculoskeletal Musculoskeletal: gait normal, strength equal bilaterally - Psychiatric Psychiatric: appropriate mood/affect, intact judgment & insight - Neurologic Neurologic: CNII-XII intact, moves all extremities Plan Activity: no restrictions Diet: regular Follow up with: ARIES MOORE MD [Primary Care Provider] - 3-5 Days ALEXANDREA HERNANDEZ MD [Staff Physician] - 7 Days Prescriptions: Docusate Sodium [Colace] 100 mg PO BID PRN #60 capsule PRN Reason: Constipation RX: Ferrous Sulfate [Feosol 325 MG tab] 325 mg PO BID #60 tablet
== END 2019-01-16 17:42 | disposition home or self-care (01) | DRG 760 ==
LOC: ED 11:37 → 4A 15:55
PROVIDERS: ADMIT Internal Medicine; ATTEND Internal Medicine
PROC: 30233N1 Transfusion of Nonautologous Red Blood Cells into Peripheral Vein, Percutaneous Approach (ICD-10-PCS; principal; 2019-01-14)
DX: D25.9 Leiomyoma of uterus, unspecified (principal); I50.41 Acute combined systolic (congestive) and diastolic (congestive) heart failure; D64.9 Anemia, unspecified; N92.0 Excessive and frequent menstruation with regular cycle; F17.210 Nicotine dependence, cigarettes, uncomplicated; Z71.6 Tobacco abuse counseling; Z72.89 Other problems related to lifestyle
CPT/HCPCS: 36415; 36430; 71045; 71046; 76830; 76856; 80053; 83036; 83880; 84484; 84703; 85007; 85025; 85610; 85730; 86850; 86900; 86901; 86920; 93005; 93010; 93306; 94640; 99406; G0378; J1050; J1940; J7040; J7042; J7050; P9016

== ENCOUNTER 2019-02-10 18:43 | Emergency (ER) | payer SELFPAY ==
[2019-02-10 18:48] VITALS: BP 146/80
--- NOTE | 2019-02-10 18:51 | Emergency Department Report ---
Blank Doc - Documentation Documentation: This is a 38-year-old female that presents with vaginal bleeding. Was admitted for blood transfusion recently. This initial assessment/diagnostic orders/clinical plan/treatment(s) is/are subject to change based on patient's health status, clinical progression and re-assessment by fellow clinical providers in the ED. Further treatment and workup at subsequent clinical providers discretion. Patient/guardians urged not to elope from the ED as their condition may be serious if not clinically assessed and managed. Initial orders include: 1- Patient sent to MAIN for further evaluation and treatment 2- labs 3- UA
[2019-02-10 19:27] LABS: Hematocrit 24.1 % (30.3-42.9); Hemoglobin 7.8 gm/dl (10.1-14.3); Mean Corpuscular HGB Conc 32 % (30-34); Mean Corpuscular Volume 79 fl (79-97); Platelet Count 381 K/mm3 (140-440); Red Blood Count 3.05 M/mm3 (3.65-5.03)
[2019-02-10 19:38] LABS: BUN/Creatinine Ratio 7; Blood Urea Nitrogen 4 mg/dL (7-17); Calcium 8.3 mg/dL (8.4-10.2); Hemolysis Index 1
[2019-02-10 20:52] LABS: Band Neutrophils # (Manual) 0.1 K/mm3; Total Cells Counted 100
[2019-02-10 20:59] LABS: Anisocytosis 2+; Ovalocytes 1+
[2019-02-10 21:01] LABS: Tear Drop Cells Few
[2019-02-10 21:02] LABS: Hypochromasia 2+; Large Platelets Few; Platelet Estimate Consistent w Auto
--- NOTE | 2019-02-10 21:03 | Emergency Department Report ---
ED Female HPI - General Chief complaint: Vaginal Bleeding Stated complaint: HEAVY BLEEDING Time Seen by Provider: 02/10/19 18:50 Source: patient, old records reviewed Mode of arrival: Ambulatory Limitations: No Limitations - History of Present Illness Initial comments: 38-year-old female with past medical history uterine fibroids menorrhagia with his blood transfusion presents to the hospital complains of vaginal bleeding 10 days. Patient was just admitted here in January with a hemoglobin of 2.6. She also had associated high output heart failure from severe anemia. She was treated with a blood transfusion and received Depo-Provera prior to discharge. She is currently taking iron tablets. 10 days ago she began to have vaginal bleeding again which has been heavy for the last 5 days. She is using approximately one tampon per hour reports and passing clots. She reports being a little lightheaded but not as bad as it was when she was here last time. She complains of intermittent suprapubic cramping pain similar to menstrual cramps. During her admission she was seen by [place] [facility] in consultation. She is waiting for her insurance become activated on March 04 so she may follow-up as an outpatient. As per consult note from Dr. Bansal outpatient endometrial biopsy and possible hysterectomy has been recommended. - Related Data Previous Rx's Medication Instructions Recorded Last Taken Type Docusate Sodium [Colace] 100 mg PO BID PRN #60 capsule 01/16/19 Unknown Rx Ferrous Sulfate [Feosol 325 MG tab] 325 mg PO BID #60 tablet 01/16/19 Unknown Rx medroxyPROGESTERone ACETATE 10 mg PO DAILY #10 tablet 02/10/19 Unknown Rx [Provera] Allergies Allergy/AdvReac Type Severity Reaction Status Date / Time No Known Allergies Allergy Unverified 01/14/19 11:40 ED Review of Systems ROS: Stated complaint: HEAVY BLEEDING Other details as noted in HPI Comment: All other systems reviewed and negative ED Past Medical Hx - Past Medical History Previous Medical History?: Yes Hx Congestive Heart Failure: Yes ([id number]) Additional medical history: Heavty vaginal bleeding - Surgical History Past Surgical History?: No - Social History Smoking Status: Current Every Day Smoker Substance Use Type: Prescribed, Other - Medications Home Medications: Home Medications Medication Instructions Recorded Confirmed Last Taken Type Docusate Sodium [Colace] 100 mg PO BID PRN #60 capsule 01/16/19 Unknown Rx Ferrous Sulfate [Feosol 325 MG tab] 325 mg PO BID #60 tablet 01/16/19 Unknown Rx medroxyPROGESTERone ACETATE 10 mg PO DAILY #10 tablet 02/10/19 Unknown Rx [Provera] ED Physical Exam - General Limitations: No Limitations - Other Other exam information: General: No limitations, patient is alert in no acute distress Head exam: Atraumatic, normocephalic Eyes exam: Normal appearance ENT: Moist mucous membrane, normal oropharynx Neck exam: Normal inspection, full range of motion, no meningismus nontender Respiratory exam: Clear to auscultation bilateral, no wheezes, rales, crackles Cardiovascular: Normal rate and rhythm, systolic murmur Abdomen: Soft, nondistended, and nontender, with normal bowel sounds, no rebound, or guarding Extremity: Full range of motion normal inspection no deformity Back: Normal Inspection, full range of motion, no tenderness Neurologic: Alert, oriented x3, cranial nerves intact, no motor or sensory deficit Psychiatric: normal affect, normal mood Skin: Warm, dry, intact ED Course Vital Signs 02/10/19 02/10/19 02/10/19 18:45 18:46 20:27 Temperature 98.7 F 98.6 F Pulse Rate 104 H 104 H 94 H Respiratory 18 18 19 Rate Blood Pressure 146/80 Blood Pressure 146/80 [Right] O2 Sat by Pulse 100 100 99 Oximetry - Consultations Consultation #1: 02/10/19 21:[address] Chelsey Jordan professional services consultant for [place] [facility]. Recommends Provera for 10 days and outpatient follow-up. ED Medical Decision Making - Lab Data Result diagrams: 02/10/19 19:04 02/10/19 19:04 Lab Results 02/10/19 02/10/19 02/10/19 Range/Units 19:04 19:04 19:04 WBC 5.2 (4.5-11.0) K/mm3 RBC 3.05 L (3.65-5.03) M/mm3 Hgb 7.8 L (10.1-14.3) gm/dl Hct 24.1 L (30.3-42.9) % MCV 79 (79-97) fl MCH 26 L (28-32) pg MCHC 32 (30-34) % RDW 28.0 H (13.2-15.2) % Plt Count 381 (140-440) K/mm3 Add Manual Diff Complete Total Counted 100 Seg Neuts % (Manual) 69.0 (40.0-70.0) % Band Neutrophils % 1.0 % Lymphocytes % (Manual) 21.0 (13.4-35.0) % Reactive Lymphs % (Man) 0 % Monocytes % (Manual) 5.0 (0.0-7.3) % Eosinophils % (Manual) 2.0 (0.0-4.3) % Basophils % (Manual) 2.0 H (0.0-1.8) % Metamyelocytes % 0 % Myelocytes % 0 % Promyelocytes % 0 % Blast Cells % 0 % Nucleated RBC % Not Reportable Seg Neutrophils # Man 3.6 (1.8-7.7) K/mm3 Band Neutrophils # 0.1 K/mm3 Lymphocytes # (Manual) 1.1 L (1.2-5.4) K/mm3 Abs React Lymphs (Man) 0.0 K/mm3 Monocytes # (Manual) 0.3 (0.0-0.8) K/mm3 Eosinophils # (Manual) 0.1 (0.0-0.4) K/mm3 Basophils # (Manual) 0.1 (0.0-0.1) K/mm3 Metamyelocytes # 0.0 K/mm3 Myelocytes # 0.0 K/mm3 Promyelocytes # 0.0 K/mm3 Blast Cells # 0.0 K/mm3 WBC Morphology Not Reportable Hypersegmented Neuts Not Reportable Hyposegmented Neuts Not Reportable Hypogranular Neuts Not Reportable Smudge Cells Not Reportable Toxic Granulation Not Reportable Toxic Vacuolation Not Reportable Dohle Bodies Not Reportable Pelger-Huet Anomaly Not Reportable Issac Rods Not Reportable Platelet Estimate Consistent w auto Clumped Platelets Not Reportable Plt Clumps, EDTA Not Reportable Large Platelets Few Giant Platelets Not Reportable Platelet Satelliting Not Reportable Plt Morphology Comment Not Reportable RBC Morphology Not Reportable Dimorphic RBCs Not Reportable Polychromasia Not Reportable Hypochromasia 2+ Poikilocytosis Not Reportable Anisocytosis 2+ Microcytosis 1+ Macrocytosis Not Reportable Spherocytes Not Reportable Pappenheimer Bodies Not Reportable Sickle Cells Not Reportable Target Cells Not Reportable Tear Drop Cells Few Ovalocytes 1+ Helmet Cells Not Reportable [place] Bodies Not Reportable Laurel Rings Not Reportable [place] Cells Not Reportable Bite Cells Not Reportable Crenated Cell Not Reportable Elliptocytes Not Reportable Acanthocytes (Spur) Not Reportable Rouleaux Not Reportable Hemoglobin C Crystals Not Reportable Schistocytes Not Reportable Malaria parasites Not Reportable [place] Bodies Not Reportable Hem Pathologist Commnt No Sodium 140 (137-145) mmol/L Potassium 3.5 L (3.6-5.0) mmol/L Chloride 102.8 (98-107) mmol/L Carbon Dioxide 26 (22-30) mmol/L Anion Gap 15 mmol/L BUN 4 L (7-17) mg/dL Creatinine 0.6 L (0.7-1.2) mg/dL Estimated GFR > 60 ml/min BUN/Creatinine Ratio 7 % Glucose 137 H (65-100) mg/dL Calcium 8.3 L (8.4-10.2) mg/dL HCG, Qual Negative (Negative) Blood Type Antibody Screen 02/10/19 Range/Units 19:04 WBC (4.5-11.0) K/mm3 RBC (3.65-5.03) M/mm3 Hgb (10.1-14.3) gm/dl Hct (30.3-42.9) % MCV (79-97) fl MCH (28-32) pg MCHC (30-34) % RDW (13.2-15.2) % Plt Count (140-440) K/mm3 Add Manual Diff Total Counted Seg Neuts % (Manual) (40.0-70.0) % Band Neutrophils % % Lymphocytes % (Manual) (13.4-35.0) % Reactive Lymphs % (Man) % Monocytes % (Manual) (0.0-7.3) % Eosinophils % (Manual) (0.0-4.3) % Basophils % (Manual) (0.0-1.8) % Metamyelocytes % % Myelocytes % % Promyelocytes % % Blast Cells % % Nucleated RBC % Seg Neutrophils # Man (1.8-7.7) K/mm3 Band Neutrophils # K/mm3 Lymphocytes # (Manual) (1.2-5.4) K/mm3 Abs React Lymphs (Man) K/mm3 Monocytes # (Manual) (0.0-0.8) K/mm3 Eosinophils # (Manual) (0.0-0.4) K/mm3 Basophils # (Manual) (0.0-0.1) K/mm3 Metamyelocytes # K/mm3 Myelocytes # K/mm3 Promyelocytes # K/mm3 Blast Cells # K/mm3 WBC Morphology Hypersegmented Neuts Hyposegmented Neuts Hypogranular Neuts Smudge Cells Toxic Granulation Toxic Vacuolation Dohle Bodies Pelger-Huet Anomaly Issac Rods Platelet Estimate Clumped Platelets Plt Clumps, EDTA Large Platelets Giant Platelets Platelet Satelliting Plt Morphology Comment RBC Morphology Dimorphic RBCs Polychromasia Hypochromasia Poikilocytosis Anisocytosis Microcytosis Macrocytosis Spherocytes Pappenheimer Bodies Sickle Cells Target Cells Tear Drop Cells Ovalocytes Helmet Cells [place] Bodies Laurel Rings [place] Cells Bite Cells Crenated Cell Elliptocytes Acanthocytes (Spur) Rouleaux Hemoglobin C Crystals Schistocytes Malaria parasites [place] Bodies Hem Pathologist Commnt Sodium (137-145) mmol/L Potassium (3.6-5.0) mmol/L Chloride (98-107) mmol/L Carbon Dioxide (22-30) mmol/L Anion Gap mmol/L BUN (7-17) mg/dL Creatinine (0.7-1.2) mg/dL Estimated GFR ml/min BUN/Creatinine Ratio % Glucose (65-100) mg/dL Calcium (8.4-10.2) mg/dL HCG, Qual (Negative) Blood Type O POSITIVE Antibody Screen Negative - Medical Decision Making Patient's hemoglobin is stable compared to recent discharge value after cabral sfusion. Patient will be treated with Provera and will need follow-up with [facility] OPERATOR. Instructions to return if symptoms worsen. Case discussed with FINISH ROLLS OPERATOR. One dose of by mouth potassium given for mild hypokalemia - Differential Diagnosis menorrhagia, anemia, , miscarriage, fibroids Critical Care Time: No Critical care attestation.: If time is entered above; I have spent that time in minutes in the direct care of this critically ill patient, excluding procedure time. ED Disposition Clinical Impression: Anemia, Menorrhagia, Uterine fibroid, Leiomyoma Disposition: TO HOME OR SELFCARE Is pt being admited?: No Does the pt Need Aspirin: No Condition: Stable Instructions: Anemia (ED), Uterine Fibroids (ED), Menorrhagia (ED), Medroxy progesterone (By mouth) Additional Instructions: Take the medication as prescribed. Follow up with your doctor or the clinic/doctor provided. Return if symptoms worsen as indicated by your discharge instructions. Your have been prescribed additional progesterone ho rmone to help slow down the vaginal bleeding. Please note that this hormone as well as the -control shot that you have received can increase your risk of blood clots particularly when you smoke cigarettes. Prescriptions: medroxyPROGESTERone ACETATE [Provera] 10 mg PO DAILY #10 tablet Referrals: ALEXANDREA BANSAL MD [Staff Physician] - 2-3 Days Time of Disposition: 21:14
[2019-02-10] MEDS ORDERED: K-DUR PO ONE (21:06)
== END 2019-02-10 21:33 | disposition home or self-care (01) ==
LOC: ED 18:43
DX: D25.9 Leiomyoma of uterus, unspecified (principal); N92.0 Excessive and frequent menstruation with regular cycle; I50.9 Heart failure, unspecified; F17.200 Nicotine dependence, unspecified, uncomplicated
CPT/HCPCS: 36415; 80048; 84703; 85007; 85025; 86850; 86900; 86901

== ENCOUNTER 2019-04-10 08:54 | Observation (INO) | payer OTHER ==
--- NOTE | 2019-04-08 09:45 | Anesthesia Consultation ---
Anesthesia Consult and Med Hx Date of service: 04/10/19 - Airway Anesthetic Teeth Evaluation: Good, Crowns ROM Head & Neck: Adequate Mental/Hyoid Distance: Adequate Mallampati Class: Class IV (Poor mouth opening) Intubation Access Assessment: Possibly Difficult - Pre-Operative Health Status ASA Pre-Surgery Classification: ASA2 Proposed Anesthetic Plan: General Nerve Block: TAP - Pulmonary Hx Smoking: Yes Hx Asthma: Yes (As a child) - Cardiovascular System Hx Hypertension: No (Pt states can climb two flights of stairs) Hx Cardia Arrhythmia: Yes (CHF and dysrhthmia when Hgb at 2.5. Improved now) - Central Nervous System Hx Psychiatric Problems: No - Hematic Hx Anemia: Yes Hx Sickle Cell Disease: No - Other Systems Hx Alcohol Use: Yes (Occas) Hx Cancer: No
[2019-04-08 09:47] LABS: Hematocrit 20.7 % (30.3-42.9); Hemoglobin 6.4 gm/dl (10.1-14.3); Mean Corpuscular HGB Conc 31 % (30-34); Mean Corpuscular Volume 70 fl (79-97); Platelet Count 323 K/mm3 (140-440); Red Blood Count 2.98 M/mm3 (3.65-5.03); Red Cell Distribution Width 19.7 % (13.2-15.2)
[2019-04-08 12:23] LABS: Total Cells Counted 100
[2019-04-08 12:24] LABS: Anisocytosis 1+; Hypochromasia 2+
[2019-04-08 12:25] LABS: Ovalocytes Few; Platelet Estimate Consistent w Auto; Tear Drop Cells Few
--- NOTE | 2019-04-10 09:13 | Anesthesia Day of Surgery ---
Anesthesia Day of Surgery - Day of Surgery Patient Examined: Yes Patient H&P Reviewed: Yes Patient is NPO: Yes
[2019-04-10] MEDS ORDERED: LACTATED RINGERS 1,000 ML IV SCH (10:00)
[2019-04-10] MEDS ORDERED: NACL 0.9% 500 ML 500 ML IV NR (10:08)
[2019-04-10] MEDS ORDERED: NACL 0.9% 500 ML 500 ML IV ONE (10:08)
--- NOTE | 2019-04-10 10:17 | History and Physical Report ---
History of Present Illness Date of examination: 04/10/19 Date of admission: 04/10/2019 Chief complaint: abnormal bleeding and fibroids History of present illness: 38y/o with dysfunctional uterine bleeding and uterine fibroids. The abnormal bleeding has contributed to her having iron deficiency anemia. PelThe patient has elected for definitive surgical management. She will be transfused prior to the surgery Past History Past Medical History: other (anemia; uterine fibroids) Past Surgical History: section Social history: single - Obstetrical History : 2 Para: 2 Hx # Term Pregnancies: 0 Number of Pregnancies: 2 Spontaneous Abortions: 0 Induced : 0 Number of Living Children: 1 Medications and Allergies Allergies Allergy/AdvReac Type Severity Reaction Status Date / Time No Known Allergies Allergy Unverified 04/02/19 17:53 Home Medications Medication Instructions Recorded Confirmed Last Taken Type RX: No Known Home Medications [No 04/02/19 04/02/19 Unknown History Reported Home Medications] Active Meds: Active Medications Cefazolin Sodium (Ancef/Sterile Water 2 Gm/20 Ml) 2 gm IV PREOP NR Lactated Ringer's (Lactated Ringers) 1,000 mls @ 75 mls/hr IV DIRECT KEYLA Last Admin: 04/10/19 10:01 Dose: 75 mls/hr Documented by: Review of Systems All systems: negative Constitutional: fatigue Genitourinary: vaginal bleeding, pelvic pain - Vital Signs Vital signs: Vital Signs Temp Pulse Resp BP Pulse Ox 99.1 F 96 H 20 104/76 98 04/08/19 09:35 04/08/19 09:35 04/08/19 09:35 04/08/19 09:35 04/08/19 09:35 Temp Pulse Resp BP Pulse Ox 99.1 F 96 H 20 104/76 98 04/08/19 09:35 04/08/19 09:35 04/08/19 09:35 04/08/19 09:35 04/08/19 09:35 - Physical Exam Breasts: Positive: deferred Cardiovascular: Regular rate Lungs: Positive: Clear to auscultation Abdomen: Positive: normal appearance Results Result Diagrams: 04/08/19 09:35 All other labs normal. Assessment and Plan - Patient Problems (1) Anemia Current Visit: Yes Status: Acute Plan to address problem: proceed with a robotic hysterectomy and bilateral salpingectomy (2) Dysfunctional uterine bleeding Current Visit: Yes Status: Acute (3) Leiomyoma Current Visit: No Status: Acute
[2019-04-10] MEDS ORDERED: ANCEF/STERILE WATER 2 GM/20 ML IV NR (11:00)
[2019-04-10] MEDS ORDERED: ANCEF/STERILE WATER 2 GM/20 ML 2 GM/20 ML SYRINGE IV NR (11:00)
[2019-04-10] MEDS ORDERED: VERSED ONE ×2 (11:20→12:20)
[2019-04-10] MEDS ORDERED: SUBLIMAZE ONE ×2 (11:20→12:20)
[2019-04-10] MEDS ORDERED: XYLOCAINE 1% 20 mL ONE (11:21)
[2019-04-10] MEDS ORDERED: MARCAINE-EPI 0.5%-1:200,000 INFILTRATI ONE (11:22)
[2019-04-10] MEDS ORDERED: NEOSPORIN GU IR ONE ×2 (12:10→13:47)
[2019-04-10] MEDS ORDERED: DIPRIVAN 10 MG/ML IV ONE (12:21)
[2019-04-10] MEDS ORDERED: REGLAN ONE (12:21)
[2019-04-10] MEDS ORDERED: DECADRON ONE (12:21)
[2019-04-10] MEDS ORDERED: TORADOL ONE (12:21)
[2019-04-10] MEDS ORDERED: ZEMURON IV ONE (12:21)
[2019-04-10] MEDS ORDERED: XYLOCAINE MPF 2% ONE (12:22)
[2019-04-10] MEDS ORDERED: ZOFRAN ONE (12:28)
[2019-04-10] MEDS ORDERED: BLOXIVERZ ONE (12:28)
[2019-04-10] MEDS ORDERED: DILAUDID ONE ×2 (13:35→16:25)
[2019-04-10] MEDS ORDERED: NACL 0.9% IR ONE ×2 (13:48)
[2019-04-10] MEDS ORDERED: ROBINUL ONE ×2 (14:36)
--- NOTE | 2019-04-10 14:52 | Operative Report ---
Operative Report Operative Report: Date of surgery: 04/10/2019 Preoperative diagnoses: Symptomatic uterine fibroids; anemia; dysfunctional uterine bleeding Postoperative diagnoses: Same as above Procedure: Robotic hysterectomy; bilateral salpingectomy Surgeon: Cheri Bansal M.D. Garage Hand: Zaida Jordan Anesthesia: Gen. endotracheal anesthesia Estimated blood loss: 100 mL Pathology: Uterus, cervix, leiomyoma Indication: 38-year-old with symptomatic uterine fibroids. Patient had dysfunctional uterine bleeding that subsequently led to a deficiency anemia. The patient was transfused 2 units of packed red blood cells prior to the surgery. Procedure: The patient was taken to the operating room and given general endotracheal anesthesia without complication. She is prepped and draped in a normal sterile fashion. A bivalve speculum was placed in the patient's vagina and a single- tooth tenaculum placed on the anterior lip of the cervix. The uterus was sounded with the uterine sound. A [employer] uterine manipulator was placed in the bivalve speculum was then removed. Attention was then turned to the patient's abdomen where a millimeter supra umbilical skin incision was then made. A Veress needle was placed and peritoneal entry was verified water-filled syringe. Insufflation of the peritoneal cavity was performed with CO2 gas. The 12 mm trocar was then placed under direct visualization. An additional 8 mm trocar was placed on the patient's left and right lateral side just opposite of the supraumbilical trocar. An additional 5 mm right lateral trocar was then placed as the accessory port. The patient was then placed in steep Trendelenburg. The da Zoran robot was then engaged. General survey of the abdomen and pelvis revealed a markedly enlarged fibroid uterus with multiple leiomyomas. Ovaries and tubes are normal in appearance. A fenestrated forcep was placed in arm 2 and a vessel sealer was placed in arm 1. The surgeon then transferred to the surgical console. The mesosalpinx was then isolated on the right. The vessel sealer was used to coagulate the mesosalpinx which was then transected. The tube was transected from the ovary. The tubo-ovarian ligament was then coagulated and transected. The round ligament was then coagulated and transected also. The vesicouterine peritoneum was then entered from the patient's right side. The uterine vessels were then coagulated with the vessel sealer. The vessels were then transected . Attention was then turned to the patient's left side where the tubo-ovarian ligament and mesosalpinx were again isolated coagulated and transected. The vesical peritoneum was then entered from the left and joined in the midline. Peritoneum was reflected off of the lower uterine segment. Uterine vessels were then coagulated and then transected. The blood supply to the uterus was adequately contained, a posterior colpotomy was made. The V care ring was visualized. Posterior colpotomy was created with the monopolar scissors. The incision was continued circumferentially until anterior colpotomy was made. The cervix and uterus were amputated from the vaginal cuff. The leiomyoma were removed in order to decompress the uterus. The uterus was also bivalved in order to facilitate passage through the vagina. The uterus was then removed along with the tubes bilaterally through the vagina and a warm laparotomy sponge was placed and maintain the pneumoperitoneum. The vaginal cuff was then closed in a running fashion with V lock suture. Irrigation of the pelvis was performed. Hemoblast was applied to the incision. The supraumbilical 12 mm trocar site was closed with the Gordo Youssef device. The skin was then reapproximated with 4-0 Monocryl. The tissue was sent to pathology which included the cervix and uterus. The patient was then successfully extubated. She was then taken to the recovery room in stable condition. All sponge laps and needle counts were correct x2.
[2019-04-10] MEDS ORDERED: MORPHINE IV PRN (14:54)
[2019-04-10] MEDS ORDERED: PERCOCET 5/325 PO PRN (14:54)
[2019-04-10] MEDS ORDERED: ZOFRAN IV PRN (14:54)
[2019-04-10] MEDS ORDERED: TYLENOL PO PRN (14:54)
[2019-04-10] MEDS ORDERED: AMBIEN PO PRN (14:54)
[2019-04-10] MEDS ORDERED: IBUPROFEN PO PRN (14:54)
[2019-04-10] MEDS ORDERED: D5LR 1,000 ML IV SCH (15:00)
[2019-04-10] MEDS ORDERED: DILAUDID IV PRN (16:23)
[2019-04-10] MEDS ORDERED: D5LR 1,000 ML IV ONE (16:38)
[2019-04-10] MEDS: TORADOL IV SCH ×2 (17:28→23:55)
[2019-04-11 08:21] LABS: Hematocrit 28.3 % (30.3-42.9); Hemoglobin 9.3 gm/dl (10.1-14.3)
--- NOTE | 2019-04-11 08:21 | Progress Note ---
Assessment and Plan - Patient Problems (1) Anemia Current Visit: Yes Status: Acute Plan to address problem: patient doing well advance diet awaiting H/H results (2) Dysfunctional uterine bleeding Current Visit: Yes Status: Acute (3) Leiomyoma Current Visit: No Status: Acute Subjective - Subjective Date of service: 04/11/19 Interval history: Patient doing well this am. She has voided and is ambulating in the room. Pain well controlled. Tolerated a clear diet Patient reports: appetite normal, voiding normally, pain well controlled Objective - Vital Signs Latest vital signs: Vital Signs Temp Pulse Pulse Resp BP BP Pulse Ox 04/11/19 04:00 98.4 F 62 18 114/73 04/11/19 00:00 98.6 F 66 18 106/68 04/10/19 23:55 19 04/10/19 20:43 18 04/10/19 19:30 98.7 F 74 16 155/91 04/10/19 18:09 153/95 04/10/19 17:40 98.7 F 84 18 154/94 97 04/10/19 17:32 84 18 04/10/19 16:15 91 H 13 143/95 99 04/10/19 16:00 81 10 L 160/91 99 04/10/19 15:45 85 13 142/77 100 04/10/19 15:30 84 13 147/82 99 04/10/19 15:25 79 11 L 142/83 99 04/10/19 15:20 85 14 147/83 100 04/10/19 15:15 81 14 149/78 100 04/10/19 15:10 92 H 15 138/70 100 04/10/19 15:06 96.9 F L 97 H 20 149/75 100 04/10/19 12:10 99.2 F 103 H 17 126/70 100 04/10/19 11:55 98.9 F 104 H 14 127/71 100 04/10/19 11:52 98.9 F 103 H 15 128/71 100 04/10/19 11:43 107 H 16 126/70 100 04/10/19 11:38 90 22 123/74 100 04/10/19 11:33 87 21 118/72 100 04/10/19 11:28 83 14 113/71 100 04/10/19 09:10 98.3 F 98 H 16 117/64 100 04/10/19 09:05 98.3 F 98 H 16 117/64 100 Intake and Output 04/10/19 04/11/19 04/11/19 22:59 06:59 14:59 Intake Total 1000 300 Output Total 100 900 Balance 900 -600 Intake: IV 400 Oral 300 Intake, Free Water 300 300 Output: Urine 100 900 Indwelling Catheter 100 900 Other: Total, Intake Amount 300 Total, Output Amount 100 900 Voiding Method Indwelling Catheter # Voids Indwelling Catheter 1 - Exam Abdomen: Present: normal appearance, soft - Labs Labs: Abnormal lab results 04/10/19 Range/Units 09:25 Crossmatch See Detail
--- NOTE | 2019-04-11 08:23 | Discharge Summary ---
Providers - Providers Date of Admission: 04/10/19 14:54 Date of discharge: 04/11/19 Attending physician: ALEXANDREA HERNANDEZ [facility] Reason for admission: other (uterine fibroids) Procedure: other (robotic hysterectomy) Discharge diagnosis: other (uterine fibroids) Hospital course: Patient admitted the day of surgery and underwent a robotic hysterectomy and salpingectomy. Patient transfused 2 units prbcs preop for anemia. See op note. Postop uncomplicated Condition at discharge: Good Disposition: DC-01 TO HOME OR SELFCARE - Discharge Diagnoses (1) Anemia Status: Acute (2) Dysfunctional uterine bleeding Status: Acute (3) Leiomyoma Status: Acute Plan - Discharge Medications Prescriptions: Ibuprofen [Motrin] 800 mg PO Q8HR PRN #60 tablet PRN Reason: Pain, Mild (1-3) oxyCODONE /ACETAMINOPHEN [Percocet 5/325] 1 tab PO Q6HR PRN #30 tablet PRN Reason: Pain - Provider Discharge Summary Activity: no sex for 6 weeks, no heavy lifting 4 weeks, no strenuous exercise Diet: routine Instructions: routine Additional instructions: [] Smoking cessation referral if applicable(refer to patient education folder for contact #) [] Refer to [facility]'s [facility] Booklet Call your doctor immediately for: * Fever > 100.5 * Heavy vaginal bleeding ( >1 pad per hour) * Severe persistent headache * Shortness of breath * Reddened, hot, painful area to leg or breast * Drainage or odor from incision. * Keep incision clean and dry at all times and follow doctor's instructions regarding bathing/showering schedule followup in 4 weeks - Follow up plan
[2019-04-11 09:00] VITALS: BP 116/77
[2019-04-11] MEDS: TORADOL IV SCH (09:58)
== END 2019-04-11 10:40 | disposition home or self-care (01) ==
LOC: OR 08:54 → OB 14:54
PROVIDERS: ADMIT Obstetrics & Gynecology; ATTEND Obstetrics & Gynecology
DX: D64.9 Anemia, unspecified (principal); D25.9 Leiomyoma of uterus, unspecified; N93.9 Abnormal uterine and vaginal bleeding, unspecified; Z79.899 Other long term (current) drug therapy
CPT/HCPCS: 36415; 36430; 58554; 64450; 84703; 85007; 85014; 85018; 85025; 86850; 86900; 86901; 86920; 88307; 88342; 96374; 96375; 96376; A4217; G0378; J0690; J1100; J1170; J1885; J2250; J2270; J2405; J2704; J2710; J2765; J3010; J7040; J7120; J7121; P9016; S2900